=== PATIENT | female | born 1955 | race Caucasian/White ===

== ENCOUNTER → 2016-10-05 | Outpatient (CLI) | payer BC ==
[~2016-10-05] MED LIST: CALC-354 PO; DICL1GEL12 TOP; KRIL1CAP7 PO; METO25TA3 PO; PANT40TA PO; PRMVC PV
== END | disposition home or self-care (01) ==
LOC: C.LABBC 10:50
PROVIDERS: ATTEND Orthopaedic Surgery
DX: M79.601 Pain in right arm (principal); M79.604 Pain in right leg